=== PATIENT | female | born 1995 | race Caucasian/White ===

== ENCOUNTER 2017-02-16 19:32 | Emergency (ER) | payer OTHER | END 2017-02-16 20:10 | disposition home or self-care (01) | LOC: ER1 19:32 | DX: L55.9 Sunburn, unspecified (principal) | CPT/HCPCS: 99282 ==

== ENCOUNTER 2021-02-22 16:49 | Inpatient (IN) | payer BC ==
[~2021-02-22] VITALS: Ht 157.5 cm; Wt 124.3 kg
[~2021-02-22 16:49] MED LIST: IBUPROFEN600 MG PO
[2021-02-22 17:35] LABS: HEMOGLOBIN 12.6 gm/dl (12.3-15.3); RED BLOOD COUNT 4.45 M/UL (4.00-5.10); WHITE BLOOD COUNT 10.6 K/UL (4.5-11.0)
[2021-02-22] MEDS ORDERED: VITAMIN B6100 MG/2.5 PO (17:58)
[2021-02-22] MEDS ORDERED: UNISOM25 MG PO (17:59)
[2021-02-23] MEDS ORDERED: IBUPROFEN600 MG PO (19:52)
[2021-02-23] MEDS ORDERED: HYDROCODON-ACE1 EAC4 PO (19:52)
[2021-02-23] MEDS ORDERED: DOCUSATE SODIU100 MG PO (19:52)
[2021-02-24 05:58] LABS: HEMOGLOBIN 11.7 gm/dl (12.3-15.3)
== END 2021-02-25 16:39 | disposition home or self-care (01) | DRG 807 ==
LOC: GENOP 16:49 → OB 17:06
PROVIDERS: Obstetrics & Gynecology; ADMIT Obstetrics & Gynecology
PROC: 0U7C7ZZ Dilation of Cervix, Via Natural or Artificial Opening (ICD-10-PCS; 2021-02-22)
PROC: 3E033VJ Introduction of Other Hormone into Peripheral Vein, Percutaneous Approach (ICD-10-PCS; 2021-02-22)
PROC: 4A1HXCZ Monitoring of Products of Conception, Cardiac Rate, External Approach (ICD-10-PCS; 2021-02-22)
PROC: 10E0XZZ Delivery of Products of Conception, External Approach (ICD-10-PCS; principal; 2021-02-23)
PROC: 0KQM0ZZ Repair Perineum Muscle, Open Approach (ICD-10-PCS; 2021-02-23)
DX: O48.0 Post-term pregnancy (principal); Z37.0 Single live birth; Z3A.40 40 weeks gestation of pregnancy; Z83.3 Family history of diabetes mellitus; Z20.822 Contact with and (suspected) exposure to COVID-19; O70.1 Second degree perineal laceration during delivery
CPT/HCPCS: 36415; 51702; 81001; 82800; 85014; 85018; 85025; 90471; 90715; J2210; J2405; J2590; J7120; U0003

== ENCOUNTER 2021-03-26 21:06 | Emergency (ER) | payer BC ==
[~2021-03-26 21:06] MED LIST changes: +DOCUSATE SODIU100 MG PO; +HYDROCODON-ACE1 EAC4 PO; +UNISOM25 MG PO; +VITAMIN B6100 MG/2.5 PO
== END 2021-03-26 22:59 | disposition home or self-care (01) ==
LOC: ER1 21:06
DX: Z53.21 Procedure and treatment not carried out due to patient leaving prior to being seen by health care provider (principal)

== ENCOUNTER 2021-03-31 12:59 | Emergency (ER) | payer BC ==
[2021-03-31 14:19] LABS: RED BLOOD COUNT 4.69 M/UL (4.00-5.10); WHITE BLOOD COUNT 8.2 K/UL (4.5-11.0)
[2021-03-31 14:32] LABS: BUN/CREATININE RATIO 22 (0-10)
[2021-03-31] MEDS ORDERED: HYDROCHLOROTH12.5 M1 PO (16:21)
== END 2021-03-31 16:37 | disposition home or self-care (01) ==
LOC: ER1 12:59
PROVIDERS: Physician Assistant
DX: I10 Essential (primary) hypertension (principal)
CPT/HCPCS: 80053; 81001; 85025; 99283

== ENCOUNTER 2021-09-13 15:47 | Emergency (ER) | payer BC ==
[~2021-09-13 15:47] MED LIST changes: +HYDROCHLOROTH12.5 M1 PO
[2021-09-13] MEDS ORDERED: IBUPROFEN800 MG PO (19:17)
[2021-09-13] MEDS ORDERED: CEFUROXIME500 MG PO (19:17)
== END 2021-09-13 19:41 | disposition home or self-care (01) ==
LOC: ER1 15:47
DX: S39.012A Strain of muscle, fascia and tendon of lower back, initial encounter (principal); M54.9 Dorsalgia, unspecified; N39.0 Urinary tract infection, site not specified; X50.9XXA Other and unspecified overexertion or strenuous movements or postures, initial encounter
CPT/HCPCS: 81001; 84703; 87086; 99283